=== PATIENT | female | born 1960 | race Caucasian/White ===

== ENCOUNTER → 2019-11-24 | Outpatient (CLI) | payer BC, OTHER ==
[~2019-11-24] MED LIST: AMLODIPINE BESY10 MG PO; BUSPAR30 MG PO; BYDUREON P2 MG/0.65 SQ; CARVEDILOL25 MG PO; CELEBREX 200 M200 M1 PO; CELEBREX 200 M200 MG PO; CELEBREX100 MG/1 C PO; CIPRO500 MG PO; CLONAZEPAM 1 MG1 M1 PO; DIFLUCAN150 MG PO; DOXYCYCLINE 10100 MG PO; ENBREL IJ; ENDOCET 5-3251 EACH PO; GABAPENTIN PO; GLUCOPHAGE500 MG PO; HUMIRA20 MG/0.4 SQ; INSULIN SYRING1 EA57; INVOKANA300 MG PO; LASIX 40 MG TAB40 M2 PO; LEVAQUIN 500 M500 M2 PO; LIDODERM 5%1 PATC1 TRANSDERM; LISINOPRIL10 MG PO; LISINOPRIL40 MG PO; METOCLOPRAMIDE10 MG PO; MINIPRIN81 MG PO; MOBIC15 MG PO; NEURONTIN800 MG PO; NOVOLOG100 UNIT/1 SUBQ; NUVIGIL; NUVIGIL PO; OMEGA 3 500 SO1 EACH PO; OXYCODONE-ACET1 EACH PO; PEPCID20 MG PO; PERCOCET 5-3251 EACH PO; PERCOCET 7.5-31 EACH PO; PERCOCET PO; PRILOSEC 20 MG20 MG PO; PRISTIQ100 MG PO; SEROQUEL XR 20200 MG PO; SEROQUEL XR400 M1 PO; SIMVASTATIN40 MG PO; SIMVASTATIN80 MG PO; SKELAXIN 800 M800 M1 PO; STELARA45 MG/0.1 SQ; SUMATRIPTAN SUC50 MG PO; TAZORAC30 G1 TP; ULTRAM 50MG TAB50 MG PO; VICTOZA; VITAMIN D1000 UNI1 PO; VOLTAREN GEL 1100 G2 TOP; [UNRECOGNIZED DRUG - OTHER] INJECTION
== END ==
LOC: RAD 16:14
DX: M25.762 Osteophyte, left knee (principal)